=== PATIENT | female | born 1955 | race Caucasian/White ===

== ENCOUNTER 2017-01-09 10:25 | Emergency (ER) | payer BC, OTHER ==
[2017-01-09] MEDS ORDERED: SODIUM CHLORIDE 0.9% 1,000 ML IV ONE ×2 (11:22→14:10)
[2017-01-09] MEDS ORDERED: HYDROmorphone 1 MG/ML SYRINGE IVP STA (11:22)
[2017-01-09] MEDS ORDERED: ONDANSETRON 4 MG/2 ML VIAL IVP STA ×2 (11:22→14:10)
--- NOTE | 2017-01-09 11:26 | ED Physician Documentation ---
PD HPI ABD PAIN - Stated complaint Stated Complaint: ABD PX/VOMITING - Chief complaint Chief Complaint: Abd Pain - History obtained from History obtained from: Patient - History of Present Illness Timing - onset: How many days ago (4) Timing - details: Still present, Waxing and waning Quality: Pain Location: Periumbilical Associated symptoms: Nausea, Vomiting. No: Fever Similar symptoms before: Diagnosis (History of small bowel obstruction with similar symptoms.) Recently seen: Admitted (Hospitalized from 12/26/2016-12/30/2016 in [place] with partial small bowel obstruction.) - Additional information Additional information: The patient is a 61-year-old female who presents with generalized abdominal pain that started 4 days ago and has been waxing and waning since that time. She has had vomiting 4 this morning. She has had no bowel movement for the past 4 days. She has a history of small bowel obstruction, with recent hospitalization 2 weeks ago with partial small bowel obstruction that cleared with medical treatment. She denies fever or dysuria. She has a history of uterine cancer for which she is status post hysterectomy. She underwent exploratory laparotomy in 2014 when more cancer was discovered. She is currently visiting here from [place]. Review of Systems Constitutional: denies: Fever Nose: denies: Congestion Throat: denies: Sore throat Cardiac: denies: Chest pain / pressure Respiratory: denies: Dyspnea, Cough GI: reports: Abdominal Pain, Nausea, Vomiting. denies: Diarrhea : denies: Dysuria Skin: denies: Rash Musculoskeletal: denies: Back pain, Extremity swelling Neurologic: denies: Focal weakness, Numbness, Headache PD PAST MEDICAL HISTORY - Past Medical History Past Medical History: Yes Cardiovascular: None Respiratory: None Neuro: None GI: Other [employer]: Ovarian cancer, Other Other Past Medical History: endometrial CA, SBO - Past Surgical History Past Surgical History: Yes /[employer]: Hysterectomy - Present Medications Home Medications: Ambulatory Orders Medication Instructions Recorded Confirmed Nitrofurantoin [Macrobid] 100 mg PO BID #10 capsule 01/09/17 Promethazine [Phenergan] 25 - 50 mg PO Q6H PRN #10 tab 01/09/17 - Allergies Allergies/Adverse Reactions: Allergies Allergy/AdvReac Type Severity Reaction Status Date / Time Iodinated Contrast- Oral and Allergy Hives Verified 01/09/17 10:49 IV Dye Penicillins Allergy Respiratory Verified 01/09/17 10:49 - Social History Does the pt smoke?: No Smoking Status: Never smoker Does the pt drink ETOH?: No Does the pt have substance abuse?: No Additional Social History: Visiting here from [place]. - Immunizations Immunizations are current?: Yes PD ED PE NORMAL - Vitals Vital signs reviewed: Yes (Borderline hypertension.) - General General: Alert and oriented X 3, Well developed/nourished - HEENT HEENT: Atraumatic, EOMI - Neck Neck: No adenopathy, No JVD - Cardiac Cardiac: RRR, No murmur - Respiratory Respiratory: No respiratory distress, Clear bilaterally - Abdomen Abdomen: Soft, Other (Mild periumbilical tenderness to palpation, without rebound or guarding. Bowel tones are diminished.) - Back Back: No CVA TTP - Derm Derm: No rash - Extremities Extremities: No edema, No calf tenderness / cord - Neuro Neuro: Alert and oriented X 3, No motor deficit, Normal speech Results - Vitals Vitals: Vital Signs - 24 hr 01/09/17 01/09/17 01/09/17 10:46 13:31 16:06 Temperature 36.6 C Heart Rate 84 73 67 Respiratory 20 16 16 Rate Blood Pressure 143/70 H 121/61 131/72 H O2 Saturation 99 94 95 Oxygen O2 Source Room air - Labs Labs: Laboratory Tests 01/09/17 01/09/17 01/09/17 10:55 11:25 11:25 WBC 6.0 RBC 4.57 Hgb 13.7 Hct 40.6 MCV 88.8 MCH 29.9 MCHC 33.7 RDW 14.0 Plt Count 326 MPV 6.9 L Neut # 4.2 Lymph # 1.3 L Hale # 0.4 Eos # 0.0 Baso # 0.0 Absolute Nucleated RBC 0.00 Nucleated RBCs 0.0 Sodium 138 Potassium 3.8 Chloride 103 Carbon Dioxide 26 Anion Gap 9.0 BUN 14 Creatinine 0.7 Estimated GFR (MDRD) 85 L Glucose 115 H Calcium 8.9 Total Bilirubin 1.2 H AST 18 ALT 24 Alkaline Phosphatase 76 Total Protein 7.1 Albumin 4.2 Globulin 2.9 Albumin/Globulin Ratio 1.4 Lipase 12 L Urine Color YELLOW Urine Clarity HAZY Urine pH 5.5 Ur Specific [place] >=1.030 H Urine Protein TRACE Urine Glucose (UA) NEGATIVE Urine Ketones 15 H Urine Occult Blood SMALL H Urine Nitrite NEGATIVE Urine Bilirubin NEGATIVE Urine Urobilinogen 0.2 (NORMAL) Ur Leukocyte Esterase NEGATIVE Urine RBC 0-5 Urine WBC 0-3 Ur Squamous Epith Cells RARE Squamous Amorphous Sediment Marked Urine Bacteria Moderate H Ur Microscopic Review INDICATED Urine Culture Comments INDICATED - Rads (name of study) 2-view abdomen Radiology: Prelim report reviewed, EMP read contemporaneously, See rad report ( No evidence for bowel obstruction or perforation, no free air. [place] are seen over the mid abdomen. Lung bases are clear.) PD MEDICAL DECISION MAKING - ED course Complexity details: reviewed results, re-evaluated patient, considered differential, d/w patient, d/w family ED course: The patient's presentation is significant for dehydration and urinary tract infection. Abdominal x-rays reveal no evidence of bowel obstruction. Her lab results are unremarkable, except for the urinalysis. Her presentation does not suggest pyelonephritis, diverticulitis, or pancreatitis. Treatment in the emergency department included administration of normal saline 2 L IV, Zofran 4 mg IV 2, Dilaudid 1 mg IV, and Macrobid 100 mg orally. At the time of discharge she felt subjectively much improved, and demonstrated ability to drink fluids without recurrent nausea. She is being discharged with prescriptions for Macrobid and for Phenergan. I discussed with her and her potentially worrisome signs or symptoms that should prompt reevaluation in the emergency department. Departure - Departure Disposition: 01 Home, Self Care Clinical Impression: Dehydration, History of small bowel obstruction, Urinary tract infection Abdominal pain Qualifiers: Abdominal location: periumbilical Qualified Code(s): R10.33 - Periumbilical pain Condition: Stable Instructions: ED Dehydration, ED Abdominal Pain Unkn Cause, ED UTI Cystitis Female Prescriptions: Nitrofurantoin [Macrobid] 100 mg PO BID #10 capsule Promethazine [Phenergan] 25 - 50 mg PO Q6H PRN #10 tab PRN Reason: Nausea / Vomiting Comments: 1. Drink plenty of fluids, including cranberry juice. 2. Use Phenergan as prescribed if needed for nausea. 3. Take Macrobid twice daily as prescribed. 4. Follow-up with your primary physician upon return to [place]. 5. Return to the emergency department if you develop recurrent or increasing abdominal pain, persistent vomiting, or otherwise worsening symptoms. Discharge Date/Time: 01/09/17 16:13
[2017-01-09 11:39] LABS: BASOPHILS % (AUTO) 0.5 %; EOSINOPHILS % (AUTO) 0.6 %; HCT - HEMATOCRIT 40.6 % (37.0-47.0); HGB - HEMOGLOBIN 13.7 g/dL (12.0-16.0); LYMPHOCYTES # (AUTO) 1.3 10^3/uL (1.5-3.5); LYMPHOCYTES % (AUTO) 22.2 %; MEAN CORPUSCULAR HEMOGLOBIN 29.9 pg (27.0-31.0); MEAN CORPUSCULAR HGB CONC 33.7 g/dL (32.0-36.0); MEAN CORPUSCULAR VOLUME 88.8 fL (81.0-99.0); MEAN PLATELET VOLUME 6.9 fL (7.9-10.8); MONOCYTES # (AUTO) 0.4 10^3/uL (0.0-1.0); NEUTROPHILS # (AUTO) 4.2 10^3/uL (1.5-6.6); NEUTROPHILS % (AUTO) 69.7 %; RED BLOOD COUNT 4.57 10^6/uL (4.20-5.40)
[2017-01-09 11:52] LABS: ALBUMIN/GLOBULIN RATIO 1.4 (1.0-2.2); BILIRUBIN,TOTAL 1.2 mg/dL (0.2-1.0); CALCIUM 8.9 mg/dL (8.5-10.3); CREATININE 0.7 mg/dL (0.4-1.0); POTASSIUM 3.8 mmol/L (3.5-5.0); TOTAL PROTEIN 7.1 g/dL (6.7-8.2)
--- NOTE | 2017-01-09 12:02 | XRAY Preliminary Report ---
Exam: XR Abdomen 2 View IMPRESSION: No evidence for bowel obstruction or perforation, no free air. [place] are seen over the mid abdomen. Lung bases are clear. [facility] SITE ID: [id number]
[2017-01-09] MEDS ORDERED: HYDROmorphone 1 MG/ML SYRINGE ONE (12:03)
[2017-01-09] MEDS ORDERED: ONDANSETRON 4 MG/2 ML VIAL ONE ×2 (12:03→14:07)
--- NOTE | 2017-01-09 12:37 | XRAY Report ---
EXAM: ABDOMEN RADIOGRAPHY EXAM DATE: 01/09/2017 11:49 AM. CLINICAL HISTORY: Abdominal pain; history of bowel obstruction. COMPARISON: None. TECHNIQUE: 2 views. FINDINGS: Lung Bases: Unremarkable. Bowel Gas Pattern: Within normal limits. No dilated loops or abnormal fluid levels. Free Air: None. Other: Clips and nolan over the midabdomen. IMPRESSION: No evidence for bowel obstruction or perforation, no free air. Clips and nolan are seen over the mid abdomen. Lung bases are clear. [facility] Referring Provider Line: [phone] SITE ID: [id number]
[2017-01-09 13:35] LABS: PH,URINE 5.5 PH (5.0-7.5)
[2017-01-09 13:41] LABS: BILIRUBIN,URINE NEGATIVE (NEGATIVE); UA w/ MICROSCOPIC CHARGE YES
[2017-01-09 13:48] LABS: UR CULTURE IF IND INDICATED; WBC,URINE 0-3 /HPF (0-5)
[2017-01-09] MEDS ORDERED: NITROFURANTOIN MACRO 100 MG CAPSULE PO STA (15:52)
[2017-01-09] MEDS ORDERED: NITROFURANTOIN MACRO 100 MG CAPSULE PO ONE (15:55)
[2017-01-09 16:07] VITALS: BP 131/72
== END 2017-01-09 16:13 | disposition home or self-care (01) ==
LOC: ED 10:25
DX: E86.0 Dehydration (principal); I10 Essential (primary) hypertension; R10.33 Periumbilical pain; Z85.43 Personal history of malignant neoplasm of ovary
CPT/HCPCS: 36415; 74020; 80053; 81001; 83690; 85025; 87086; 96374; 96375; 96376; 99284; A9270; J1170; 81003